=== PATIENT | male | born 1970 | race Caucasian/White ===

== ENCOUNTER 2017-07-10 15:25 | Emergency (ER) | payer OTHER ==
[~2017-07-10] VITALS: Ht 177.8 cm; Wt 95.0 kg
[~2017-07-10 15:25] MED LIST: KADIAN30 MG PO; NAPROSYN500 MG PO; NOHOMEMEDS; PERCOCET 5/31 TABLET PO
[2017-07-10] MEDS ORDERED: IBUPROFEN600 MG PO (17:16)
[2017-07-10 17:53] VITALS: BP 185/103
[2017-07-16] MEDS ORDERED: MOTRIN800 MG PO (09:15)
[2017-07-16] MEDS ORDERED: OXYCODONE HCL5 MG PO (09:17)
[2017-07-16] MEDS ORDERED: ZESTRIL20 MG PO (09:18)
[2017-07-16] MEDS ORDERED: ZOLOFT100 MG PO (09:18)
[2017-07-16] MEDS ORDERED: TIZANIDINE HCL4 MG PO (09:19)
[2017-07-16] MEDS ORDERED: ZOCOR20 MG PO (09:20)
[2017-07-16] MEDS ORDERED: LYRICA50 MG PO (09:20)
== END 2017-07-10 17:55 | disposition home or self-care (01) ==
LOC: EME 15:25
PROC: 2W3DX1Z Immobilization of Left Lower Arm using Splint (ICD-10-PCS; principal; 2017-07-10)
DX: S52.502A Unspecified fracture of the lower end of left radius, initial encounter for closed fracture (principal); S52.612A Displaced fracture of left ulna styloid process, initial encounter for closed fracture; S80.812A Abrasion, left lower leg, initial encounter; W01.0XXA Fall on same level from slipping, tripping and stumbling without subsequent striking against object, initial encounter; F17.200 Nicotine dependence, unspecified, uncomplicated
CPT/HCPCS: 73090; 99281; 99285; J1885; J2270

== ENCOUNTER → 2017-07-14 | Outpatient (CLI) | payer OTHER ==
[~2017-07-14] MED LIST changes: +IBUPROFEN600 MG PO; +LYRICA50 MG PO; +METOPROLOL TART50 MG PO; +MOTRIN800 MG PO; +OXYCODONE HCL5 MG PO; +TIZANIDINE HCL4 MG PO; +ZESTRIL20 MG PO; +ZOCOR20 MG PO; +ZOLOFT100 MG PO
== END | disposition home or self-care (01) ==
LOC: CDC 11:53
DX: M25.532 Pain in left wrist (principal); M25.432 Effusion, left wrist; S52.572A Other intraarticular fracture of lower end of left radius, initial encounter for closed fracture; S52.612A Displaced fracture of left ulna styloid process, initial encounter for closed fracture
CPT/HCPCS: 93000

== ENCOUNTER 2017-07-17 08:41 | Day surgery (SDC) | payer OTHER ==
[~2017-07-17] VITALS: Ht 177.8 cm; Wt 90.7 kg
[~2017-07-17 08:41] MED LIST changes: -METOPROLOL TART50 MG PO
[2017-07-17] MEDS ORDERED: METOPROLOL TART50 MG PO (08:59)
[2017-07-17 09:04] VITALS: BP 175/100
[2017-07-17 13:46] VITALS: BP 168/98
[2017-07-17 14:45] VITALS: BP 143/92
== END 2017-07-17 15:00 | disposition home or self-care (01) ==
LOC: SDC 08:41
PROC: 0PSH04Z Reposition Right Radius with Internal Fixation Device, Open Approach (ICD-10-PCS; principal; 2017-07-17)
DX: S52.572A Other intraarticular fracture of lower end of left radius, initial encounter for closed fracture (principal); W10.9XXA Fall (on) (from) unspecified stairs and steps, initial encounter; Y93.01 Activity, walking, marching and hiking; I10 Essential (primary) hypertension; J44.9 Chronic obstructive pulmonary disease, unspecified; E78.00 Pure hypercholesterolemia, unspecified; Z87.891 Personal history of nicotine dependence
CPT/HCPCS: 73100; 76000; C1713; J0131; J0461; J0690; J1100; J1170; J1885; J2250; J2405; J3010; S0020